=== PATIENT | male | born 1945 | race Caucasian/White ===

== ENCOUNTER 2016-12-25 11:55 | Emergency (ER) | payer OTHER ==
[2016-12-25 15:24] LABS: ABSOLUTE NEUTROPHILS 3.2 thou/uL (1.4-8.2); BASOPHILS 0.3 % (0.0-2.0); EOSINOPHILS 3.2 % (0.0-3.0); HEMATOCRIT 56.6 % (42.0-52.0); HEMOGLOBIN 19.1 gm/dL (14.0-18.0); LYMPHOCYTES 24.6 % (24.0-44.0); MANUAL DIFF NO; MCH 31.7 pg (26.0-34.0); MCHC 33.7 g/dL (28.0-37.0); MONOCYTES 7.8 % (1.0-8.0); PLATELET COUNT 136 thou/uL (150-400); POLYS 64.1 % (36.0-66.0); RBC 6.02 mil/uL (4.50-6.00); RDW 14.5 % (10.5-14.5)
[2016-12-25 15:27] LABS: CALCIUM 9.5 mg/dL (8.5-10.1); CREATININE 1.2 mg/dL (0.7-1.3); POTASSIUM 3.9 mmol/L (3.5-5.1)
[2016-12-25] MEDS ORDERED: NORCO 5-325 TA1 EACH PO (16:03)
[2016-12-25] MEDS ORDERED: BACTRIM DS TAB1 EACH PO (16:03)
[2016-12-25 16:04] VITALS: BP 141/82
[2016-12-26] MEDS ORDERED: CELEBREX 200 M200 M1 PO (22:40)
[2016-12-26] MEDS ORDERED: CENTRUM SILVER1 EAC4 PO (22:41)
[2016-12-26] MEDS ORDERED: LYRICA 75 MG CA75 MG PO (22:41)
[2016-12-26] MEDS ORDERED: ASPIR 8181 MG PO (22:41)
[2016-12-26] MEDS ORDERED: LIPITOR 10 MG10 M1 PO (22:42)
[2016-12-26] MEDS ORDERED: VITAMIN D400 UNIT PO (22:43)
== END 2016-12-25 16:07 | disposition home or self-care (01) ==
LOC: ER 11:55
PROVIDERS: Emergency Medicine
DX: S90.852A Superficial foreign body, left foot, initial encounter (principal); F17.220 Nicotine dependence, chewing tobacco, uncomplicated; X58.XXXA Exposure to other specified factors, initial encounter; Y93.89 Activity, other specified; Y92.89 Other specified places as the place of occurrence of the external cause; Y99.8 Other external cause status

== ENCOUNTER 2016-12-26 16:34 | Inpatient (IN) | payer OTHER ==
[~2016-12-26] VITALS: Ht 177.8 cm; Wt 109.3 kg
--- NOTE | ~2016-12-26 | HC ---
[facility] [place] [address] CONSULTATION Name: PAULY LEACH Room #: 421-P [facility] IN M.R.#: [id number] Admission: 12/26/16 Attend Phys: Andrew Cedeno MD Discharge: 12/31/16 Date of : 47 Report #: [id number] THIS REPORT FOR: //name// CC: Elham Aguiar MD, Dr. , Belen Cedeno MD DATE OF SERVICE: 12/27/2016 INTRODUCTION: The patient is a 71-year-old male who is being seen for inflammation and swelling accompanied by pain involving his left forefoot. This individual began experiencing these symptoms approximately one week ago after having been quite active on his foot. He had increasing pain, swelling and dorsal lesser MPJ redness, which had worsened early last week. He was seen in the emergency room at [facility] on 12/25/2016, where he was determined to have a cellulitis, presumably associated with a foreign body that was visualized on routine radiographs. Incision, I and D and attempted foreign body retrieval was unsuccessful and I was subsequently called. He was unable to be seen in our office at that time and was discharged with oral antibiotics and recommendations for nonweightbearing. On 12/26/2016, he presented to the emergency room with worsening symptoms in his opinion and was subsequently admitted with IV antibiotics. PAST MEDICAL HISTORY: Includes a history of peripheral neuropathy involving both lower extremities, he currently has pain with prolonged standing and walking and also has a sensation loss with lack of protective threshold to the mid foot level. He denies a history of diabetes and has no other known etiology for his neuropathy; however, his confides that he had drank heavily years ago. The remainder of his past medical history with regard to this condition is unremarkable. He does not recall having a puncture wound injury to his foot. He typically works with work style shoe; however, at the time of his foot aggravation, he was wearing sandals while working in the yard. PHYSICAL EXAMINATION: Pedal exam reveals dorsalis pedis, posterior tibial pulses graded 2/4. Capillary refill time is within normal limits. Neurologically, the patient lacks protective threshold utilizing [place]ikeyan monofilament to the mid foot level. His left foot is obviously edematous, particularly in the plantar lesser metatarsal head region beneath the second and third metatarsophalangeal joints. There is a small amount of hyperkeratosis beneath the second metatarsal head and a 1-cm incision area where attempted foreign body retrieval was initiated in the emergency room. This incision area is completely dry and healed. There is no inflammation or drainage at the site. Bulk of the patient's symptoms are at the [address] [address] CONSULTATION Name: HAYLEEMARGARITA Room #: 421-P DIS IN M.R.#: [id number] Admission: 12/26/16 Attend Phys: Andrew Cedeno MD Discharge: 12/31/16 Date of : 47 Report #: [id number] metatarsophalangeal joint and to a lesser extent the third. The patient demonstrates mzaa-jb-rquuczhf erythema localized to the lesser toes 2 through 4 and their associated metatarsophalangeal joints. Once again, there are no open wounds, evidence of puncture injury and there is no drainage. Webspaces are clear and dry. The patient has full digital function with the bulk of his pain being localized to the second metatarsophalangeal joint. Radiographs demonstrate metatarsus adductus foot type with subluxation of the second, third, and fourth metatarsophalangeal joints, third metatarsophalangeal joint is abducted. There is a small, less than 1-cm metallic fragment localized within the subcutaneous tissues distal to the third metatarsophalangeal joint and based on these radiographs well away from the area of attempted foreign body retrieval in the emergency room. The foreign body lies approximately a centimeter deep to the skin. No other osseous articular abnormalities are noted relevant to this case. IMPRESSION: 1. Peripheral neuropathy, bilateral lower extremities. 2. Cellulitis, left forefoot. 3. Foreign body, left forefoot. PLAN: The patient's condition was reviewed with him. It is entirely possible that the swelling and inflammation that is seen accompanied by the point of tenderness and lack of knowledge regarding puncture wound injury point towards a more acute capsulitis of these lesser metatarsophalangeal joints. Given the patient's neuropathy, high arched foot and subluxed metatarsophalangeal joints, his current symptoms are explainable through mechanical sources alone. However, presence of foreign body on radiographs raises a question about possible infectious etiology. I discussed the patient's condition and status with Dr. Cedeno and we have elected to pursue MRI examination of the patient's foot to rule out abscess. I have suggested continued IV antibiotics and monitoring with nonweightbearing on this foot for the next 24-48 hours and make a determination about the patient's status at that time. The current location of this foreign body is clinically well away from the area of the patient's maximum pain level and may be an incidental finding. The MRI should help to guide us in that acute joint inflammation will be identifiable and would alyson against the likelihood of this being an infectious condition. However, we are prepared to surgically address this problem through retrieval of this foreign body if necessary and if the patient's symptoms do not william. I will be following him closely over the next 48 hours. <ELECTRONICALLY SIGNED> By: Chris De La Rosa DPM 01/08/17 0901 1134 1818 Chris De La Rosa DPM /nt
--- NOTE | ~2016-12-26 | O ---
[facility] [address] [address] OPERATIVE REPORT Name: PAULY LEACH Room #: 421-P [facility] IN M.R.#: [id number] Admission: 12/26/16 Attend Phys: Andrew Cedeno MD Discharge: 12/31/16 Date of : 47 Report #: [id number] THIS REPORT FOR: //name// CC: Elham Cedeno DATE OF SERVICE: 12/29/2016 PREOPERATIVE DIAGNOSIS: Foreign body, left foot, with cellulitis. POSTOPERATIVE DIAGNOSIS: Foreign body, left foot, with cellulitis. PROCEDURE: Removal of foreign body, left foot, with exploration. ANESTHESIA: General with local anesthetic. DESCRIPTION OF PROCEDURE: The patient was brought to the operating room and placed on the operating room table in supine position. Three layers of Webril padding were placed around the left ankle and pneumatic ankle tourniquet placed over that in preparation for later inflation. General anesthesia was begun without complications. A 7 mL of 1:1 mix of 1% lidocaine plain and 0.5% Marcaine plain were injected at the mid shaft of the third metatarsal of the left foot to obtain local anesthesia. The foot was prepped and draped in the usual sterile fashion. Radiology was present and fluoroscopy was utilized to determine the location of the foreign body. Once location was identified, access was gained through the original incision site that was created by the Emergency Room. Devitalized tissue around this incision area was removed. There was no gross drainage, pus or other signs of necrosis at the time of this incision. Access to deeper tissues was made. No direct visualization of the foreign body was able to be performed initially and fluoroscopy was once again utilized to pinpoint the location of this presumed metallic fragment. It was withdrawn, removed in toto. There was no additional pathology noted at the time of retrieval including no evidence of wound tracking, drainage, pus, necrosis, etc. Wound was irrigated following a standard culture swab for aerobic and anaerobic cultures. It was dressed with iodoform gauze tape, 4 x 4s, Fariba, Vincent bandage. Prior to actual incision, tourniquet had been used and it was deflated. The capillary refill time to all toes was normal following deflation of the tourniquet. The patient was transferred to the postanesthesia recovery room where vital signs were monitored by recovery room staff. There were no complications of this procedure. Estimated blood loss was minimal. There was a culture swab specimen and metallic fragment sent to pathology. The ____ recovery area and was noted to be in stable condition. His medications will be resumed and medical care followed by Dr. Cedeno based on intraoperative findings. There was no evidence of abscess intraoperatively or on MRI. [place] [address] OPERATIVE REPORT Name: HAYLEEMARGARITA Room #: 421-P DIS IN M.R.#: [id number] Admission: 12/26/16 Attend Phys: Andrew Cedeno MD Discharge: 12/31/16 Date of : 47 Report #: [id number] allowed to return to home and followed on an outpatient basis with the likely need for continued antibiotics and wound care. The patient also preoperatively indicated that he had not received a tetanus toxoid in the ER and was concerned about this foreign body. We will order a tetanus toxoid for him, though this metallic fragment was ____ appearing and looked as if it was old injury. <ELECTRONICALLY SIGNED> By: Chris De La Rosa DPM 01/08/17901 04 38 Chris De La Rosa DPM /nt
--- NOTE | ~2016-12-26 | S ---
[facility] [place] [address] SURGICAL PATH RPT PROCEDURE Name: PAULY LEACH Room #: 421-P ADM IN M.R.#: [id number] Admission: 12/26/16 Date of : 47 Discharge: Report #: [id number] Path Case #: [id number] PATHOLOGY REPORT COLLECTION DATE: 12/29/2016 RECEIVED DATE: 12/30/2016 SUBMITTING PHYS: Dr. Chris De La Rosa OTHER PHYS: Dr. Andrew Nayak SPECIMEN(S) RECEIVED: A.Foreign body-left foot * * * * * * * * * * * * FINAL DIAGNOSIS: "Foreign body-left foot", removal: - Curved metallic foreign object (gross examination only). (CLW:yeni; 12/30/2016) PATHOLOGIST: Judie Rodrigues M.D. REPORT ELECTRONICALLY SIGNED BY: Judie Rodrigues M.D. DATE/TIME: 12/30/2016 19:37 * * * * * * * * * * * * GROSS PATHOLOGY: The specimen is received fresh, labeled "Pauly Leach, foreign body," and additionally labeled on the requisition in the clinical background as, "left foot". Received is a curved segment of silver metal measuring 0.8 cm in length by 0.1 cm in diameter. A gross photograph is taken. Sections are not submitted. (CAA; 12/30/2016) CLINICAL HISTORY: Foreign body left foot INITIAL CPT CODE(S): A; 91272 Professional services performed by [facility] at [facility] [address], [place] [address] Technical services performed by [facility] at [address] [place] [id number]. [facility] [address] [place] [address] SURGICAL PATH RPT PROCEDURE Name: PAULY LEACH Room #: 421-P ADM IN .R.#: [id number] Admission: 12/26/16 Date of : 47 Discharge: Report #: [id number] Path Case #: [id number] [facility] [address] [address] PHONE: [phone] DIRECTOR: Sim Landaverde M.D. * * * END OF REPORT * * *
--- NOTE | ~2016-12-26 | H ---
[facility] [place] [address] HISTORY AND PHYSICAL Name: PAULY LEACH Room #: 421-P [facility] IN .R.#: [id number] Admission: 12/26/16 Attend Phys: Andrew Cedeno MD Discharge: 12/31/16 Date of : 47 Report #: [id number] THIS REPORT FOR: //name// CC: Elham Cedeno MD DATE OF SERVICE: 12/29/2016 INTRODUCTION: The patient is a 71-year-old male who is presenting to the operating room for removal of foreign body and an assessment of possible infection related to this condition. This individual was admitted through the Emergency Room on 12/26/2016 with a foreign body and cellulitis, suspected related to this condition. He has a history of neuropathy and was unable to recall a puncture wound event. He had undergone an attempt at retrieval in the Emergency Room, which yielded no evidence of infectious material and no ability to retrieve the foreign body. He has subsequently been hospitalized with IV vancomycin and evaluated for gout and possible neuropathic arthropathy. MRI obtained today reveals no evidence of abscess. No profound joint disturbances, despite subluxation of his second, third and fourth toes on plain radiograph. The patient's white count has remained normal. He is afebrile; however, has persistent mild erythema, limited to the bases of the second, third and fourth toes dorsally. His MRI does indicate increased soft tissue edema in this region. Because of the failure to respond to IV antibiotics and persistent pain in the forefoot. We have elected to proceed with removal of the foreign body, in hopes that this is the origin of all of his symptoms. PAST MEDICAL HISTORY: With regards to this condition, includes history of peripheral neuropathy. He denies diabetes. He has had no history of peripheral vascular disease. PHYSICAL EXAMINATION: His pedal exam reveals dorsalis pedis, posterior tibial pulses graded at 2/4. His capillary refill time is within normal limits. Neurologically, he lacks protective threshold to the mid foot level. His left foot demonstrates findings similar to that upon his original presentation 2 days ago, with a moderate forefoot edema, particularly plantar, beneath the second, third and fourth met heads. No open wounds, sinus or significant plantar erythema. There is a small zone of mild erythema, limited to the dorsum of his left foot at the lesser metatarsal level. The patient has full digital function. There is no other gross pathology noted. IMAGING DATA: Radiographs demonstrate a small metallic foreign body that appears to be about a centimeter into the subcutaneous fat, inferior to the [address] [address] HISTORY AND PHYSICAL Name: LEACHPAULY Room #: 421-P DIS IN M.R.#: [id number] Admission: 12/26/16 Attend Phys: Andrew Cedeno MD Discharge: 12/31/16 Date of : 47 Report #: [id number] third toe. The patient as noted has subluxation of the second, third, and fourth metatarsophalangeal joints. No other osseous, articular abnormalities are noted on the radiograph. MRI findings are as discussed in the introduction. IMPRESSION: Persistent cellulitis with retained foreign body, left foot. PLAN: The patient's condition has been reviewed with him at length. While his MRI demonstrates no fluid around this foreign body and no evidence of abscess, we are assume that it is responsible for his symptoms. It is also possible that with absence of other infectious signs such as elevated WBC and a fever, that patient's symptoms are result of a traumatic disturbance of these joints in a neuropathic foot. I reviewed these issues with the patient and his at length. We have discussed the approach which would be a plantar incision in the operating room, to remove this foreign body and evaluate surrounding tissues. I have discussed the aftercare demands, potential risks and complications which include but not limited to pain, swelling, bleeding, numbness, infection, undercorrection, overcorrection, anesthesia complications, delays in healing, tourniquet complications, persistent infection requiring additional surgery. After discussing his issues with the patient, he is interested in proceeding with the procedure as discussed. <ELECTRONICALLY SIGNED> By: Chris De La Rosa DPM 01/08/17 0901 1455 1645 Chris De La Rosa DPM /nt
--- NOTE | ~2016-12-26 | HC ---
[facility] [place] [address] CONSULTATION Name: PAULY LEACH Room #: 421-P [facility] IN M.R.#: [id number] Admission: 12/26/16 Attend Phys: Andrew Cedeno MD Discharge: Date of : 47 Report #: [id number] THIS REPORT FOR: //name// CC: Elham Cedeno REASON FOR CONSULTATION: I was asked to evaluate the patient concerning possible left foot infection. HISTORY OF PRESENT ILLNESS: The patient is a 71-year-old with peripheral neuropathy. He presents with a several-day history of increased swelling with tenderness in the plantar aspect of his left foot. He has noticed no specific trauma. He has had no fever, chills or sweats. He does work about 5 hours a day on his feet. This has been an ongoing issue with no change in his program. He was seen in the Emergency Room where a foreign body was identified in the soft tissues on x-ray. Attempted incision and removal through the plantar aspect of his forefoot failed to identify the foreign object. He was later taken to surgery this week for extraction of the foreign body, which appeared to be an old piece of metal. There was no abscess evident at the time of surgery. There was no evidence of involvement into the joint or bone. MRI scan confirmed the same with changes of neuropathic foot. His medications have included several doses of Bactrim prior to his admission then vancomycin. He did have 1 day of temperature up to 100.4 degrees, otherwise has been afebrile. REVIEW OF SYSTEMS: No cardiopulmonary, GI or complaints. ALLERGIES: None. MEDICATIONS: As noted on his MAR including the vancomycin. PAST MEDICAL HISTORY: He has had a several extremity surgeries. In 2005, he had a repair of a tendon in the left first toe. No diabetes, no history of gout or other arthritis. Hiatal hernia, hyperlipidemia, hypertension, tonsillectomy, vasectomy. FAMILY HISTORY: COPD and cancer. SOCIAL HISTORY: Past smoker, now chews tobacco, no alcohol. REVIEW OF SYSTEMS: As noted above. PHYSICAL EXAMINATION: VITAL SIGNS: Afebrile, hemodynamically stable. GENERAL: He is alert, cooperative and pleasant, in no acute distress. HEENT: Unremarkable. CHEST: Clear. HEART: Regular. [address] [address] CONSULTATION Name: PAULY LEACH Room #: 421-P [facility] IN .R.#: [id number] Admission: 12/26/16 Attend Phys: Andrew Cedeno MD Discharge: Date of : 47 Report #: [id number] ABDOMEN: Soft. EXTREMITIES: Pulses in the left leg normal. He had a high arch to both feet. He had an incision involving the plantar aspect over the second metatarsal head. He had 1+ swelling in this region. Mild erythema involving the plantar and dorsal forefoot. Sensation decreased. Good capillary refill. LABORATORY STUDIES: Sodium 137, potassium 4.0, creatinine 1.1. Liver function tests normal. Hemoglobin 13.9, white count 4.8, platelet count 235,000. Sedimentation rate 32. Vancomycin trough 17. Blood cultures negative to date. Wound culture, Gram stain, no organisms and negative thus far, now 24 hours into incubation. MRI scan as noted above. IMPRESSION: A 71-year-old with peripheral neuropathy and I suspect early Charcot changes with acute soft tissue inflammatory process, still difficult to know whether this is traumatic induced or related to infection. I do not think this is a primary infection related to the foreign body. Recommend continuing antibiotic coverage and offloading the foot. Elevate to control swelling. We will reassess in the a.m. and anticipate outpatient care going forward. The patient will likely need orthotics to help prevent any further Charcot changes if possible. By: [id number] Pipo Layne MD /nt
[~2016-12-26 16:34] MED LIST: BACTRIM DS TAB1 EACH PO; NORCO 5-325 TA1 EACH PO
[2016-12-26 16:35] VITALS: BP 134/76
[2016-12-26 18:27] LABS: ABSOLUTE NEUTROPHILS 2.9 thou/uL (1.4-8.2); BASOPHILS 0.3 % (0.0-2.0); EOSINOPHILS 3.5 % (0.0-3.0); HEMATOCRIT 40.9 % (42.0-52.0); LYMPHOCYTES 33.1 % (24.0-44.0); MCH 31.8 pg (26.0-34.0); MCHC 33.9 g/dL (28.0-37.0); MCV 93.9 fL (80.0-100.0); MONOCYTES 10.8 % (1.0-8.0); POLYS 52.3 % (36.0-66.0); RBC 4.36 mil/uL (4.50-6.00); RDW 14.1 % (10.5-14.5); WBC 5.5 thou/uL (4.0-11.0)
[2016-12-26 18:30] LABS: CALCIUM 9.3 mg/dL (8.5-10.1); CREATININE 1.1 mg/dL (0.7-1.3); POTASSIUM 4.1 mmol/L (3.5-5.1)
[2016-12-26 18:32] LABS: HEMOGLOBIN 13.9 gm/dL (14.0-18.0); MANUAL DIFF NO; PLATELET COUNT 231 thou/uL (150-400)
[2016-12-26 18:35] LABS: ALBUMIN 3.4 g/dL (3.4-5.0); DIRECT BILIRUBIN 0.1 mg/dL (<0.1-0.3); TOTAL BILIRUBIN 0.3 mg/dL (<0.1-1.0); TOTAL PROTEIN 7.2 g/dL (6.4-8.2)
[2016-12-26 19:40] VITALS: BP 129/79
[2016-12-26 20:49] VITALS: BP 159/88
[2016-12-26] MEDS ORDERED: CELEBREX 200 M200 M1 PO (22:40)
[2016-12-26] MEDS ORDERED: LYRICA 75 MG CA75 MG PO (22:41)
[2016-12-26] MEDS ORDERED: CENTRUM SILVER1 EAC4 PO (22:41)
[2016-12-26] MEDS ORDERED: ASPIR 8181 MG PO (22:41)
[2016-12-26] MEDS ORDERED: LIPITOR 10 MG10 M1 PO (22:42)
[2016-12-26] MEDS ORDERED: VITAMIN D400 UNIT PO (22:43)
[2016-12-27 04:02] VITALS: BP 129/88
[2016-12-27 07:45] VITALS: BP 141/84
[2016-12-27 16:05] VITALS: BP 154/80
[2016-12-27 20:15] VITALS: BP 149/88
[2016-12-28 03:21] VITALS: BP 124/71
[2016-12-28 08:16] VITALS: BP 138/82
[2016-12-28 09:46] LABS: HEMATOCRIT 41.2 % (42.0-52.0); HEMOGLOBIN 13.9 gm/dL (14.0-18.0); MCH 31.6 pg (26.0-34.0); MCHC 33.8 g/dL (28.0-37.0); MCV 93.3 fL (80.0-100.0); RBC 4.41 mil/uL (4.50-6.00); RDW 14.2 % (10.5-14.5); WBC 4.8 thou/uL (4.0-11.0)
[2016-12-28 09:55] LABS: CALCIUM 9.2 mg/dL (8.5-10.1); CREATININE 1.1 mg/dL (0.7-1.3)
[2016-12-28 15:39] VITALS: BP 129/79
[2016-12-28 19:47] VITALS: BP 149/91
[2016-12-29 05:50] VITALS: BP 130/78
[2016-12-29 07:49] VITALS: BP 123/94
[2016-12-29 15:47] VITALS: BP 149/88
[2016-12-29 20:00] VITALS: BP 135/91
[2016-12-30 04:00] VITALS: BP 120/82
[2016-12-30 08:12] VITALS: BP 116/76
[2016-12-30 15:45] VITALS: BP 119/69
[2016-12-30 20:00] VITALS: BP 133/68
[2016-12-31 02:09] VITALS: BP 133/68
[2016-12-31 05:31] VITALS: BP 124/74
[2016-12-31 07:24] VITALS: BP 131/86
[2016-12-31 15:10] VITALS: BP 160/72
[2016-12-31] MEDS ORDERED: KEFLEX500 MG PO (15:27)
[2016-12-31 16:27] VITALS: BP 160/72
== END 2016-12-31 17:25 | disposition home or self-care (01) | DRG 572 ==
LOC: ER 16:34 → 4E 18:55 → EROBS 18:55 → 4E 20:31 → ENTRNSPT 12-31 17:13 → 4E 12-31 17:25
PROVIDERS: Emergency Medicine; Internal Medicine
PROC: 0JCR0ZZ Extirpation of Matter from Left Foot Subcutaneous Tissue and Fascia, Open Approach (ICD-10-PCS; principal; 2016-12-29)
PROC: 0HBNXZZ Excision of Left Foot Skin, External Approach (ICD-10-PCS; 2016-12-29)
DX: L03.116 Cellulitis of left lower limb (principal); G62.9 Polyneuropathy, unspecified; W45.8XXA Other foreign body or object entering through skin, initial encounter; E78.5 Hyperlipidemia, unspecified; I10 Essential (primary) hypertension; F17.220 Nicotine dependence, chewing tobacco, uncomplicated; Z82.5 Family history of asthma and other chronic lower respiratory diseases; Z80.9 Family history of malignant neoplasm, unspecified; Z90.49 Acquired absence of other specified parts of digestive tract; Z98.52 Vasectomy status; Y93.89 Activity, other specified; Y92.89 Other specified places as the place of occurrence of the external cause; Y99.8 Other external cause status
CPT/HCPCS: 10084; 50010; 50101; 50386; 62110; 62900; 70005

== ENCOUNTER 2019-10-06 08:55 | Emergency (ER) | payer OTHER ==
[~2019-10-06] VITALS: Ht 177.8 cm; Wt 99.8 kg
[~2019-10-06 08:55] MED LIST changes: +ASPIR 8181 MG PO; +CELEBREX 200 M200 M1 PO; +CENTRUM SILVER1 EAC4 PO; +KEFLEX500 MG PO; +LIPITOR 10 MG10 M1 PO; +LYRICA 75 MG CA75 MG PO; +VITAMIN D400 UNIT PO
[2019-10-06] MEDS ORDERED: CHILDREN'S ASPI81 M1 PO (09:08)
[2019-10-06 10:47] VITALS: BP 149/54
== END 2019-10-06 11:06 | disposition home or self-care (01) ==
LOC: ER 08:55
DX: S60.446A External constriction of right little finger, initial encounter (principal); I10 Essential (primary) hypertension; E78.5 Hyperlipidemia, unspecified; Z98.52 Vasectomy status; G62.9 Polyneuropathy, unspecified; Z79.82 Long term (current) use of aspirin; Z79.899 Other long term (current) drug therapy; Z72.0 Tobacco use; W49.04XA Ring or other jewelry causing external constriction, initial encounter; Y93.89 Activity, other specified; Y92.89 Other specified places as the place of occurrence of the external cause; Y99.8 Other external cause status